=== PATIENT | male | born 1945 | race Caucasian/White ===

== ENCOUNTER → 2018-02-20 | Outpatient (CLI) | payer MEDICARE, OTHER ==
[~2018-02-20] MED LIST: ASPIRIN81 M2 PO; CARVEDILOL25 MG PO; CRESTOR PO; CRESTOR40 MG PO; ENDOCET 7.5-321 EACH PO; FISH OIL 1,2001 EAC4 PO; FLAX SEED OIL1000 MG PO; GLUCOPHAGE XR500 MG PO; GLUCOPHAGE1000 MG PO; IRON PO; LASIX 40 MG TAB40 M1 PO; LEXAPRO 10 MG T10 M2 PO; LIVALO4 MG PO; MAGNESIUM OXID200 MG PO; NABUMETONE 750750 M1 PO; NEURONTIN600 MG PO; NEXIUM40 MG PO; NIASPAN 500 MG500 M1 PO; PROZAC10 MG; VICODIN ES TAB1 EACH; VITAMIN E400 UNIT PO; VITAMINC500 PO; ZEDIA PO; ZESTRIL10 MG PO; ZETIA10 MG PO
== END ==
LOC: M.RAD 15:37
DX: M47.894 Other spondylosis, thoracic region (principal); Z95.0 Presence of cardiac pacemaker

== ENCOUNTER → 2018-12-28 | Outpatient (CLI) | payer MEDICARE, OTHER ==
[2018-12-28 10:17] LABS: POTASSIUM 4.6 mmol/L (3.5-5.1)
== END ==
LOC: M.LAB 03:18
PROVIDERS: Student in an Organized Health Care Education/Training Program
DX: Z01.812 Encounter for preprocedural laboratory examination (principal); E11.9 Type 2 diabetes mellitus without complications

== ENCOUNTER → 2019-02-08 | Outpatient (CLI) | payer MEDICARE, OTHER | LOC: M.RAD 08:35 | DX: K22.4 Dyskinesia of esophagus (principal); Z98.890 Other specified postprocedural states; Z96.643 Presence of artificial hip joint, bilateral ==